=== PATIENT | female | born 1990 | race Caucasian/White ===

== ENCOUNTER → 2023-12-24 11:00 | Outpatient (REF) | payer OTHER, SELFPAY ==
--- NOTE | 2023-12-24 11:10 | PN.DIAED06 ---
Meal Plan - Gestational
- Breakfast
Gestational Diabetes Meal Plan Name: 1800 calories
Breakfast - Total Carbohydrate (grams): 30
Breakfast - Starch Carbohydrate: 1
Breakfast - Fruit Carbohydrate: 0
Breakfast - Milk Carbohydrate: 1
Breakfast - Nonstarchy Vegetables: Yes
Breakfast - Meat/Protein: 1
Breakfast - Fat: 2
- Morning Snack
Morning Snack - Total Carbohydrate (grams): 30
Morning Snack - Starch Carbohydrate: 1
Morning Snack - Fruit Carbohydrate: 0
Morning Snack - Milk Carbohydrate: 1
Morning Snack - Nonstarchy Vegetables: Yes
Morning Snack - Meat/Protein: 0.5
Morning Snack - Fat: 0
- Lunch
Lunch - Total Carbohydrate (grams): 45
Lunch - Starch Carbohydrate: 2
Lunch - Fruit Carbohydrate: 1
Lunch - Milk Carbohydrate: 0
Lunch - Nonstarchy Vegetables: Yes
Lunch - Meat/Protein: 2
Lunch - Fat: 1
- Afternoon Snack
Afternoon Snack - Total Carbohydrate (grams): 30
Afternoon Snack - Starch Carbohydrate: 1
Afternoon Snack - Fruit Carbohydrate: 1
Afternoon Snack - Milk Carbohydrate: 0
Afternoon Snack - Nonstarchy Vegetables: Yes
Afternoon Snack - Meat/Protein: 1
Afternoon Snack - Fat: 0
- Dinner
Dinner - Total Carbohydrate (grams): 45
Dinner - Starch Carbohydrate: 2
Dinner - Fruit Carbohydrate: 0
Dinner - Milk Carbohydrate: 1
Dinner - Nonstarchy Vegetables: Yes
Dinner - Meat/Protein: 2
Dinner - Fat: 2
- Evening Snack
Evening Snack - Total Carbohydrate (grams): 30
Evening Snack - Starch Carbohydrate: 1
Evening Snack - Fruit Carbohydrate: 0
Evening Snack - Milk Carbohydrate: 1
Evening Snack - Nonstarchy Vegetables: Yes
Evening Snack - Meat/Protein: 1
Evening Snack - Fat: 1
--- NOTE | 2023-12-24 13:10 | PN.DE ---
Diabetes Education
- -
Met with Ms. Funez today, , currently at 29 weeks of gestation, here today for medical nutrition therapy.
Explained glucose metabolism in body and what occurs during to cause increase blood sugar. Discussed importance of keeping BS well controlled to avoid complications to the baby during and after (macrosomia, hypoglycemia). Explained
to Mariola that she is at increased risk of developing T2DM in the future. Mariola reports that she has a glucose monitor at home and has been monitoring her blood sugars 2 hrs after each meal since dx of GDM. Reviewed proper testing technique,
testing sites and testing pattern. She is aware to test FBS and 2 hr pp each meal. Expected results for FBS <95 mg/dl and 2 hr pp <120 mg/dl.
Explained high carbohydrate diet and macronutrients and the effect each has on blood sugar. Provided with 1800 mateo GDM meal plan. She was educated on how to read a nutritional fact label and look at total CHO in relation to serving size. No fruit or
fruit juice until noontime. Provided with handout on snacks as well as 'Choose Your Foods' booklet. A Log sheet was provided for her to record results, she will send her 4 day meal log with all her FBG and 2hr Post prandial glucose numbers to this
office for review. In addition, she will send all her glucose readings to Joanna at [facility] every Saturday. She was encouraged to keep a regular activity schedule and will reach out should she require insulin.
== END ==
LOC: DES 11:00
PROVIDERS: ATTENDING PHYSICIAN Obstetrics & Gynecology
DX: O24.419 Gestational diabetes mellitus in pregnancy, unspecified control (principal)
CPT/HCPCS: 99078

== ENCOUNTER → 2024-01-03 13:00 | Outpatient (REF) | payer OTHER, SELFPAY ==
--- NOTE | 2024-01-03 13:34 | PN.DE ---
Diabetes Education
- -
01/03/2024: Diabetes Education Consult for Insulin Instructions.
Met with Mariola today for insulin instructions, currently at 30 weeks gestation with GDM. Her fasting glucose levels have been 94 to 111mg/dl, and 88 to 130mg/dl 2 hrs after meals. Pt has been recommended to start Basal insulin Lantus 6 units @ HS
per her Perinatologist Dr. Hernandez. Discussed action of long acting insulins as well as symptoms and treatment of hypoglycemia. She is aware to inject insulin in outer thigh, rotating sites and aware to store insulin pens that are not in use in the
refrigerator. Instructions with good return demonstration using the insulin pen were noted. Discussed importance of checking fasting blood sugar to know the effect of the basal insulin on her blood sugars overnight. She has been consistent with
monitoring 2 hrs after each meal.
Mariola was very emotional and very tearful, expressing how stressful this has turned out to be since finding out that she has GDM. provided emotional support and encouraged Mariola to focus on the main aspects of her meal plan and
monitoring her blood sugars and increasing physical activity.
She stated that she has been very frustrated since our meeting last week for Medical Nutrition therapy because she is getting conflicting information about what she should be eating. She continued to say that one doctor told her to stick to a keto
diet and that there is no proven evidence of ketosis.
Emphasized need for Mariola to adhere to the meal plan that was provided to her last week and to continue consuming enough CHO in her diet and avoid restrictive diets all together during . Mariola she verbalized understanding
== END ==
LOC: DES 13:00
PROVIDERS: ATTENDING PHYSICIAN Obstetrics & Gynecology Maternal & Fetal Medicine
DX: O24.419 Gestational diabetes mellitus in pregnancy, unspecified control (principal)
CPT/HCPCS: 99078

== ENCOUNTER → 2024-02-03 15:57 | Outpatient (REF) | payer OTHER, SELFPAY | LOC: PNTC 15:57 | PROVIDERS: ATTENDING PHYSICIAN Obstetrics & Gynecology | DX: O24.419 Gestational diabetes mellitus in pregnancy, unspecified control (principal) | CPT/HCPCS: 59025 ==

== ENCOUNTER → 2024-02-06 13:33 | Outpatient (REF) | payer OTHER, SELFPAY | LOC: PNTC 13:33 | PROVIDERS: ATTENDING PHYSICIAN Obstetrics & Gynecology | DX: O24.419 Gestational diabetes mellitus in pregnancy, unspecified control (principal) | CPT/HCPCS: 59025 ==

== ENCOUNTER → 2024-02-10 15:55 | Outpatient (REF) | payer OTHER, SELFPAY | LOC: PNTC 15:55 | PROVIDERS: ATTENDING PHYSICIAN Obstetrics & Gynecology | DX: O24.419 Gestational diabetes mellitus in pregnancy, unspecified control (principal) | CPT/HCPCS: 59025 ==

== ENCOUNTER → 2024-02-17 15:57 | Outpatient (REF) | payer OTHER, SELFPAY | LOC: PNTC 15:57 | PROVIDERS: ATTENDING PHYSICIAN Obstetrics & Gynecology | DX: O24.419 Gestational diabetes mellitus in pregnancy, unspecified control (principal) | CPT/HCPCS: 59025 ==

== ENCOUNTER → 2024-02-20 13:34 | Outpatient (REF) | payer OTHER, SELFPAY | LOC: PNTC 13:34 | PROVIDERS: ATTENDING PHYSICIAN Obstetrics & Gynecology | DX: O24.419 Gestational diabetes mellitus in pregnancy, unspecified control (principal) | CPT/HCPCS: 59025 ==

== ENCOUNTER → 2024-02-24 16:00 | Outpatient (REF) | payer OTHER, SELFPAY | LOC: PNTC 16:00 | PROVIDERS: ATTENDING PHYSICIAN Obstetrics & Gynecology | DX: O24.419 Gestational diabetes mellitus in pregnancy, unspecified control (principal) | CPT/HCPCS: 59025 ==

== ENCOUNTER → 2024-02-27 13:32 | Outpatient (REF) | payer OTHER, SELFPAY | LOC: PNTC 13:32 | PROVIDERS: ATTENDING PHYSICIAN Obstetrics & Gynecology | DX: O24.419 Gestational diabetes mellitus in pregnancy, unspecified control (principal) | CPT/HCPCS: 59025 ==

== ENCOUNTER → 2024-03-02 15:52 | Outpatient (REF) | payer OTHER, SELFPAY | LOC: PNTC 15:52 | PROVIDERS: ATTENDING PHYSICIAN Obstetrics & Gynecology | DX: O24.419 Gestational diabetes mellitus in pregnancy, unspecified control (principal) | CPT/HCPCS: 59025 ==

== ENCOUNTER 2024-03-05 19:35 | Inpatient (IN) | payer OTHER, SELFPAY ==
[2024-03-05 19:41] VITALS: BP 122/79; BMI 33.1
[2024-03-05 20:07] LABS: Glucose - Point of Care 118 mg/dl (70-99)
[2024-03-05 20:20] LABS: % Basophils 0.3 % (0-2); % Eosinophils 0.6 % (0-6); % Lymphocytes 17.2 % (20.5-51.1); % Monocytes 5.2 % (1.7-9.3); % Neutrophils 75.7 % (42.2-75.2); Absolute Basophils 0.1 10^3/uL (0-0.2); Absolute Eosinophils 0.1 10^3/uL (0-0.7); Absolute Immature Granulocytes 0.2 10^3/uL (0-0.05); Absolute Lymphocytes 2.5 10^3/uL (1.2-3.4); Absolute Monocytes 0.8 10^3/uL (0.1-0.6); Hematocrit 37.1 % (37.0-47.0); Hemoglobin 12.2 g/dL (12.0-16.0); Mean Corp Hgb Conc. 32.9 g/dL (33.0-37.0); Mean Corpuscular Hgb 21.7 pg (27.0-31.0); Mean Platelet Volume 11.3 fL (7.4-10.4); Nucleated Red Blood Cells % 0 %; Platelet Count 248 10^3/uL (130-400); Red Blood Cell Count 5.62 10^6/uL (4.20-5.40); Red Cell Dist. Width 15.6 % (11.5-14.5); White Blood Cell Count 14.5 10^3/uL (4.8-10.8)
[2024-03-05] MEDS: CYTOTEC 25 MICROGRAM VAG (20:50)
[2024-03-05] MEDS: LANTUS 0.2 UNITS SC (21:54)
[2024-03-06] MEDS: CYTOTEC 50 MICROGRAM PO ×2 (00:58→05:03)
[2024-03-06 06:40] LABS: Glucose - Point of Care 74 mg/dl (70-99)
[2024-03-06] MEDS: TUMS CHEWABLE TABLET 400 MG PO (09:14)
[2024-03-06] MEDS: LR 1000 IV ×2 (09:41→16:46)
[2024-03-06] MEDS: PITOCIN 30 UNITS/NSS 500 ML IV ×2 (09:42→14:56)
[2024-03-06 09:59] LABS: Glucose - Point of Care 95 mg/dl (70-99)
[2024-03-06] MEDS: FENTANYL/BUPIVACAINE 100 EPIDURAL (11:46)
[2024-03-06] MEDS: SUBLIMAZE 100 MCG EPIDURAL (11:46)
[2024-03-06 12:42] LABS: Glucose - Point of Care 76 mg/dl (70-99)
[2024-03-06 14:14] LABS: Glucose - Point of Care 68 mg/dl (70-99)
[2024-03-06 14:36] LABS: Glucose - Point of Care 79 mg/dl (70-99)
[2024-03-06] MEDS: TRANEXAMIC ACID 100 IV (15:06)
[2024-03-06] MEDS: METHERGINE INJECTION 0.2 MG IM (15:13)
[2024-03-06] MEDS: CYTOTEC 800 MCG RECTAL (15:37)
[2024-03-06] MEDS: MOTRIN 600 MG PO ×2 (17:23→23:40)
[2024-03-06] MEDS: TYLENOL 650 MG PO ×2 (17:23→23:40)
[2024-03-06] MEDS: SENOKOT-S 1 TABLET PO (19:48)
[2024-03-07 04:57] LABS: Hematocrit 32.4 % (37.0-47.0); Hemoglobin 10.7 g/dL (12.0-16.0)
[2024-03-07] MEDS: MOTRIN 600 MG PO (06:24)
[2024-03-07] MEDS: TYLENOL 650 MG PO ×2 (06:25→15:45)
[2024-03-07] MEDS: PRENATAL PLUS 1 TABLET PO (08:26)
[2024-03-07] MEDS: SENOKOT-S 1 TABLET PO (19:50)
[2024-03-08] MEDS: PRENATAL PLUS 1 TABLET PO (08:48)
[2024-03-08] MEDS: TYLENOL 650 MG PO (08:54)
[2024-03-10 11:31] LABS: Syphilis/T. pallidum Ab Reflex Negative (Negative)
== END 2024-03-08 11:13 | disposition home or self-care (01) | DRG 807 ==
LOC: LDRP 19:35
PROVIDERS: Obstetrics & Gynecology; ADMITTING PHYSICIAN Obstetrics & Gynecology; FAMILY PHYSICIAN Emergency Medicine
PROC: 3E0P7VZ Introduction of Hormone into Female Reproductive, Via Natural or Artificial Opening (ICD-10-PCS; 2024-03-05)
PROC: 10907ZC Drainage of Amniotic Fluid, Therapeutic from Products of Conception, Via Natural or Artificial Opening (ICD-10-PCS; 2024-03-06)
PROC: 10E0XZZ Delivery of Products of Conception, External Approach (ICD-10-PCS; 2024-03-06)
PROC: 0KQM0ZZ Repair Perineum Muscle, Open Approach (ICD-10-PCS; 2024-03-06)
DX: O24.424 Gestational diabetes mellitus in childbirth, insulin controlled (principal); Z37.0 Single live birth; O70.1 Second degree perineal laceration during delivery; O69.2XX0 Labor and delivery complicated by other cord entanglement, with compression, not applicable or unspecified; Z3A.39 39 weeks gestation of pregnancy
CPT/HCPCS: 88307; 36415; 82962; 85014; 85018; 85025; 86780; 86850; 86900; 86901

== ENCOUNTER 2024-08-26 02:06 | Emergency (ER) | payer OTHER, SELFPAY ==
[2024-08-26 02:11] VITALS: BP 138/87
[2024-08-26 02:28] LABS: % Basophils 0.7 % (0-2); % Eosinophils 1.2 % (0-6); % Immature Granulocytes 0.3 % (0-0.5); % Lymphocytes 23.8 % (20.5-51.1); % Monocytes 4.6 % (1.7-9.3); % Neutrophils 69.4 % (42.2-75.2); Absolute Basophils 0.1 10^3/uL (0-0.2); Absolute Eosinophils 0.2 10^3/uL (0-0.7); Absolute Lymphocytes 3.2 10^3/uL (1.2-3.4); Absolute Monocytes 0.6 10^3/uL (0.1-0.6); Absolute Neutrophils 9.4 10^3/uL (1.4-6.5); Hemoglobin 12.8 g/dL (12.0-16.0); Mean Corpuscular Hgb 20.4 pg (27.0-31.0); Mean Corpuscular Volume 63.9 fL (81.0-99.0); Mean Platelet Volume 10.8 fL (7.4-10.4); Nucleated Red Blood Cells % 0 %; Platelet Count 413 10^3/uL (130-400); Red Blood Cell Count 6.26 10^6/uL (4.20-5.40); Red Cell Dist. Width 16.7 % (11.5-14.5); White Blood Cell Count 13.6 10^3/uL (4.8-10.8)
[2024-08-26 02:40] VITALS: BP 122/82
[2024-08-26 02:41] VITALS: BMI 27.6
[2024-08-26 02:51] LABS: Troponin I < 0.012 ng/ml
[2024-08-26 02:58] LABS: ALT (SGPT) 35 U/L (0-35); AST (SGOT) 23 U/L (14-36); Alkaline Phosphatase 101 U/L (38-126); Blood Urea Nitrogen 26 mg/dl (7-17); Calcium 11.5 mg/dl (8.4-10.2); Chloride 106 mmol/L (98-107); Estimated Creatinine Clearance 86 ml/min; Glucose 122 mg/dl (70-99); Potassium 4.4 mmol/L (3.5-5.1); Sodium 141 mmol/L (135-145); Total Bilirubin 1.3 mg/dl (0.2-1.3); Total Protein 7.6 g/dl (6.3-8.2); eGFR > 60.00
[2024-08-26 03:00] VITALS: BP 108/70
[2024-08-26 03:09] LABS: Carbon Dioxide 24 mmol/L (22-30)
[2024-08-26 04:00] VITALS: BP 108/68
--- NOTE | 2024-08-26 04:37 | ED.GENMED ---
History of Present Illness
General
Chief Complaint: Chest Pain
Source: patient
Exam Limitations: none
Time Seen by Provider: 08/26/24 04:06
Nursing documentation reviewed up to this point in time: agreed with
History of Present Illness
History of Present Illness:
Pleasant 33-year-old female presents with heart palpitations. Patient states that the palpitations began around 8 PM. Initially they did not go away. She came in because the pain started to radiate through to her back. She denies any medical
history. Did have a baby 4 months ago. Denies fever, chills, nausea or vomiting. Reports no previous cardiac history. No family history. She does not smoke, drink alcohol, or do drugs. Currently has no symptoms. States that symptoms resolved
after.
Past History
Past History
ED Past Medical History: None
ED Past Surgical History: None
Social History
Tobacco: Non-smoker
Personal: Single
Living: with family
Employment: Employed
Review of Systems
Review of Systems
Allergies reviewed?: Yes
Other source history: family
All Other Systems: ROS reviewed and negative except as documented in HPI and ROS
Constitutional: Reports no symptoms
EENT: Reports no symptoms
Respiratory: Reports no symptoms
Cardiac: Reports no symptoms
ABD/GI: Reports no symptoms
: Reports no symptoms
Musculoskeletal: Reports no symptoms
Skin: Reports no symptoms
Neurological: Reports no symptoms
Endocrine: Reports no symptoms
Hematologic/Lymphatic: Reports no symptoms
Psychiatric: Reports no symptoms
Phy Exam
General Physical Exam
General Presentation: well appearing and no apparent distress
General Skin: warm and dry
General Habitus: normal
General Mental: alert
General Hydration: appears well hydrated
ENT Exam
ENT Exam: EOMI, pharynx normal, neck supple and normocephalic
Eye Exam
Eye Exam: PERRL, cornea clear and conjunctiva normal
Cardiovascular Exam
Cardiovascular Exam: regular rate/rhythm, no edema, no murmur and normal peripheral pulses
Pulmonary Exam
Pulmonary Exam: lungs clear, no respiratory distress, no rales, no crackles, no rhonchi, no stridor, no wheezing and no cough
Gastrointestinal Exam
Gastrointestinal Exam: normal bowel sounds, non tender, soft, no organomegaly, no pulsatile mass and non distended
Neurological Exam
Neurological Exam: alert, oriented x3, no motor deficits and speech normal
Musculoskeletal Exam
Musculoskeletal Exam: full ROM and no edema
Skin Exam
Skin Exam: normal color, warm/dry, no rash and no petechia
Psychiatric Exam
Psychiatric Exam: normal mood/affect
Scores
Heart Score for Chest Pain Patients
STEMI patient?: Not applicable
Course
Orders/Labs/Results
Orders:
Orders
08/26/24 02:06
EKG [Electrocardiogram (*1)] Urgent
Reason for Study: Chest Pain
EKG- Treatment ONCE
08/26/24 02:14
CONSULT Routine
08/26/24 02:20
Complete Blood Count/With Diff Urgent
Comprehensive Metabolic Panel Urgent
08/26/24 02:21
Troponin I Urgent
08/26/24 04:27
CXR2 [CR Chest - 2 Views ] Urgent
Comment: now resolved
Reason For Exam: chest pain
Abnormal Lab Results
08/26/24
02:20
WBC 13.6 H 10^3/uL
(4.8-10.8)
RBC 6.26 H 10^6/uL
(4.20-5.40)
MCV 63.9 L fL
(81.0-99.0)
MCH 20.4 L pg
(27.0-31.0)
MCHC 32.0 L g/dL
(33.0-37.0)
RDW 16.7 H %
(11.5-14.5)
Plt Count 413 H 10^3/uL
(130-400)
MPV 10.8 H fL
(7.4-10.4)
Absolute Neuts (auto) 9.4 H 10^3/uL
(1.4-6.5)
BUN 26 H mg/dl
(7-17)
Glucose 122 H mg/dl
(70-99)
Calcium 11.5 H mg/dl
(8.4-10.2)
08/26/24 02:20
08/26/24 02:20
Vital Signs
Initial and Last Documented VS:
Initial Vital Signs
Temp Pulse Resp BP Pulse Ox
98.0 F 51 17 138/87 99
08/26/24 02:11 08/26/24 02:11 08/26/24 02:11 08/26/24 02:11 08/26/24 02:11
Last Documented Vital Signs
Temp Pulse Resp BP Pulse Ox
98.0 F 49 15 108/68 96
08/26/24 02:11 08/26/24 04:00 08/26/24 04:00 08/26/24 04:00 08/26/24 04:00
*Pulse Oximetry
Patient hypoxic: no
*Critical Care Note
Total Time (30-74mins, 75-104mins- exclusive of procedures): Not Applicable
ED Attending Note
-
Portions of this chart may have been created with voice recognition software.� Occasional wrong word or��sound alike� substitutions may have occurred due to the inherent limitations of voice recognition software.
Discharge Plan
Departure
Patient Disposition: Home (Routine Discharge)
Date of Disposition: 08/26/24
Time of Disposition: 04:40
Patient with high blood pressure during this ER visit?: Yes
Condition: Good
Discharge Problem:
Palpitations
Instructions: Palpitations
Prescriptions:
No Action
prenat.vits,mateo,ovt-ssde-fiwpc Tablet
1 tab PO DAILY
acetaminophen 325 mg Tablet
650 mg PO Q4HPRN PRN (Reason: mild pain) Qty: 0 0RF
ibuprofen 600 mg Tablet
600 mg PO Q6HPRN PRN (Reason: moderate pain/cramps) Qty: 0 0RF
WesTab Plus 27 mg iron- 1 mg Tablet
1 tab PO DAILY Qty: 0 0RF
Referrals:
[facility] [Outside]
Activity Restrictions/Additional Instructions:
Thank You for choosing [facility].
It was a pleasure meeting you and taking part in your care. We hope for your continued healing and wellness.
Please read discharge instructions in their entirety. However, they are for general education and may not describe your exact diagnosis at discharge. Information on your ER visit and medical conditions were discussed with you along with appropriate
follow up information...
If indicated, please take your medications as instructed and indicated on discharge paperwork.
Please schedule a follow up appointment as directed. Call to schedule an appointment
Please return to the emergency department with ANY change in, persisting, or worsening of symptoms. If any of your symptoms do not improve, or persist, or become more severe within 6-12 hours, please return to the emergency department for further
care.
Please return to the emergency department if you develop a headache, neck pain/stiffness, fever greater than 100.4F, chest pain, shortness of breath, persistent nausea, vomiting, slurred speech, difficulty walking, numbness/tingling, weakness, signs
of infection or any other symptoms that are worrisome to you.
If you have any questions or concerns please do not hesitate to call the Hospital at or E-mail me directly at [email or web address]
Interventions
Interventions:
*Risk Screen - Suicide Last Done: 08/26/24 02:11
*General Assessment Last Done: 08/26/24 02:11
*Neglect/Abuse Screening Last Done: 08/26/24 02:11
*ED- Fall Risk Assessment Last Done: 08/26/24 02:11
*ED COVID-19 Vaccine History Last Done: 08/26/24 02:11
ED- Cardiac Assessment Last Done: 08/26/24 02:41
Discharge Date and Time
Print Language: KHMER
== END 2024-08-26 04:57 | disposition home or self-care (01) ==
LOC: EMR 02:06
PROVIDERS: EMERGENCY PHYSICIAN Student in an Organized Health Care Education/Training Program; FAMILY PHYSICIAN Emergency Medicine
DX: R00.2 Palpitations (principal); R07.9 Chest pain, unspecified; M54.9 Dorsalgia, unspecified; R06.02 Shortness of breath; R03.0 Elevated blood-pressure reading, without diagnosis of hypertension
CPT/HCPCS: 99283; 71046; 80053; 84484; 85025; 93005